=== PATIENT | female | born 1975 | race Caucasian/White ===

== ENCOUNTER 2019-01-08 17:51 | Emergency (ER) | payer MEDICAID, OTHER ==
[~2019-01-08] VITALS: Ht 167.6 cm; Wt 76.2 kg
[2019-01-08 17:56] VITALS: BP 103/70
== END 2019-01-08 18:26 | disposition home or self-care (01) ==
LOC: ER 17:55
DX: S80.862A Insect bite (nonvenomous), left lower leg, initial encounter (principal); S80.861A Insect bite (nonvenomous), right lower leg, initial encounter; W57.XXXA Bitten or stung by nonvenomous insect and other nonvenomous arthropods, initial encounter; Y93.89 Activity, other specified; Y92.89 Other specified places as the place of occurrence of the external cause; Y99.8 Other external cause status

== ENCOUNTER 2019-01-19 20:59 | Emergency (ER) | payer OTHER ==
[~2019-01-19] VITALS: Ht 167.6 cm; Wt 78.0 kg
[2019-01-19 21:31] VITALS: BP 126/76
== END 2019-01-19 23:20 | disposition home or self-care (01) ==
LOC: ER 21:04
DX: S70.11XA Contusion of right thigh, initial encounter (principal); S80.862A Insect bite (nonvenomous), left lower leg, initial encounter; S80.861A Insect bite (nonvenomous), right lower leg, initial encounter; W57.XXXA Bitten or stung by nonvenomous insect and other nonvenomous arthropods, initial encounter; Y93.89 Activity, other specified; Y92.89 Other specified places as the place of occurrence of the external cause; Y99.8 Other external cause status

== ENCOUNTER 2020-08-16 22:21 | Emergency (ER) | payer OTHER ==
[~2020-08-16] VITALS: Ht 167.6 cm; Wt 74.4 kg
[2020-08-16 22:25] VITALS: BP 118/67
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
[2020-08-16] MEDS ORDERED: TDAP [DIPH/PERTUSSIS/TET] 0.5 ML VIAL IM ONE ×2 (23:00→23:42)
[2020-08-16] MEDS ORDERED: IBUP-1955 PO (23:36)
--- NOTE | 2020-08-16 23:55 | NUR ---
PATIENT IS AMBULATORY WITH A STEADY GAIT.
--- NOTE | 2020-08-16 23:55 | NUR ---
PATIENT PROVIDED WITH A RIGHT LEG KNEE IMMOBILIZER
--- NOTE | 2020-08-16 23:55 | NUR ---
Patient discharged to home in stable condition. Written and verbal after care instructions given. Patient verbalizes understanding of instruction.
== END 2020-08-16 23:56 | disposition home or self-care (01) ==
LOC: ER 22:27
DX: S81.012A Laceration without foreign body, left knee, initial encounter (principal); S16.1XXA Strain of muscle, fascia and tendon at neck level, initial encounter; S80.01XA Contusion of right knee, initial encounter; Z79.899 Other long term (current) drug therapy; V49.49XA Driver injured in collision with other motor vehicles in traffic accident, initial encounter; Y93.89 Activity, other specified; Y92.488 Other paved roadways as the place of occurrence of the external cause; Y99.8 Other external cause status
CPT/HCPCS: 70450-TC; 72125-TC; 73564-TC; 90715